=== PATIENT | female | born 2000 | race Caucasian/White ===

== ENCOUNTER 2022-05-08 14:33 | Inpatient (IN) | payer OTHER ==
[2022-05-08 15:32] VITALS: BMI 38.0
[2022-05-08] MEDS: hydrALAZINE 20 MG/ML VIAL ONE ×2 (15:34→16:21)
[2022-05-08] MEDS ORDERED: Magnesium Sulfate 20 gm/500 ml 20 GM/500 ML BAG ONE (16:14)
[2022-05-08] MEDS ORDERED: Lorazepam 2 MG/ML VIAL SLOW IVP PRN ×2 (17:02→17:49)
[2022-05-08] MEDS ORDERED: Calcium Gluc 4.6 MEQ/10 ML (100 MG/ML) SLOW IVP PRN ×2 (17:02→17:49)
[2022-05-08] MEDS ORDERED: Ondansetron PF 4 MG/2 ML Vial IVP PRN (17:02)
[2022-05-08] MEDS ORDERED: Labetalol HCl 100 MG/20 ML VIAL SLOW IVP PRN ×2 (17:02)
[2022-05-08] MEDS ORDERED: Butorphanol Tartrate 1 MG/ML VIAL SLOW IVP PRN (17:02)
[2022-05-08] MEDS ORDERED: hydrALAZINE 20 MG/ML VIAL SLOW IVP PRN ×3 (17:02)
[2022-05-08] MEDS ORDERED: Promethazine HCl 25 MG/ML VIAL IM PRN (17:02)
[2022-05-08] MEDS ORDERED: Labetalol HCl 100 MG/20 ML VIAL ONE (17:19)
[2022-05-08] MEDS ORDERED: NIFEdipine 10 MG CAP PO PRN ×2 (17:49)
[2022-05-08] MEDS ORDERED: Magnesium Sulfate 1 GM/2 ML VIAL IM SCH (18:00)
[2022-05-08] MEDS: Magnesium Sulfate 20 gm/500 ml 20 GM/500 ML BAG IVPB SCH (18:00)
[2022-05-08] MEDS ORDERED: MAGNESIUM SULFATE IM SCH ×2 (18:30→18:35)
[2022-05-08] MEDS ORDERED: LIDOCAINE 2% IM SCH ×2 (18:30→18:35)
[2022-05-08 19:06] LABS: Hemoglobin 13.7 g/dL (12.0-15.5); Mean Corpuscular HGB CONC 34.4 g/dL (32.0-36.0); Mean Corpuscular Hemoglobin 28.5 pg (27.0-33.0); Mean Corpuscular Volume 82.7 fl (81.6-98.3); Mean Platelet Volume 11.5 fl (7.4-10.4); Platelet Count 230 10x3/uL (150-450); RBC Distribution Width 14.1 % (11.5-14.5); Red Blood Cell (RBC) Count 4.81 10x6/uL (3.90-5.03); White Blood Cell (WBC) Count 23.1 10x3/uL (3.5-10.5)
[2022-05-08 19:21] LABS: ALT (SGPT) 43 U/L (8-55); AST (SGOT) 47 U/L (5-34); Albumin 3.4 g/dL (3.5-5.0); Alkaline Phosphatase 98 U/L (40-110); Anion Gap 15 mmol/L (10-20); BUN (Urea Nitrogen) 13 mg/dL (7.0-18.7); Bilirubin, Total 0.2 mg/dL (0.2-1.2); Calc. Creatinine Clearance 221 mL/min (70-130); Calcium 9.4 mg/dL (7.8-10.44); Carbon Dioxide 18 mmol/L (22-29); Chloride 107 mmol/L (98-107); Estimated GFR 126; Globulin 3.9 g/dL (2.4-3.5); Glucose 71 mg/dL (70-105); Protein, Total 7.3 g/dL (6.0-8.3); Sodium 136 mmol/L (136-145)
[2022-05-08 19:39] LABS: HBSAg Index 0.14 S/CO (0-0.99); Hep B Surf Ag Non-Reactive S/CO (NonReactive); Lymphocytes 14 % (21-51); Monocytes 5 % (0-10); Neutrophil 81 % (42-75)
[2022-05-08 19:40] LABS: MDiff Complete? YES; Platelet Morphology Comment Appears Adequate; RBC Morphology Normal; Syphilis Antibody Nonreactive (Nonreactive); Syphilis Antibody Index 0.06 S/CO (<1.00 Non-Reactive)
[2022-05-08 20:09] LABS: Amphetamine Not Detected (NotDetected); Barbiturates Screen Not Detected (NotDetected); Benzodiazepine Screen Not Detected (NotDetected); Cocaine Metabolite Screen Not Detected (NotDetected); Methadone Not Detected (NotDetected); Methamphetamine Not Detected (NotDetected); Opiate Screen Not Detected (NotDetected); Oxycodone Screen Not Detected (NotDetected); Phencyclidine (PCP) Not Detected (NotDetected); THC/Cannabinoid Screen Not Detected (NotDetected); Tricyclic Screen Not Detected (NotDetected)
[2022-05-08] MEDS: NIFEdipine XL 30 MG TAB PO SCH (21:15)
[2022-05-08] MEDS ORDERED: Fioricet 325/50/40 mg Tablet PO SCH (21:45)
[2022-05-09] MEDS: Magnesium Sulfate 20 gm/500 ml 20 GM/500 ML BAG IVPB SCH ×2 (00:53→12:11)
[2022-05-09 01:31] LABS: SARS-CoV-2 NAA Rapid Test Not Detected (NotDetected)
[2022-05-09] MEDS ORDERED: Fioricet 325/50/40 mg Tablet PO PRN (05:23)
[2022-05-09] MEDS ORDERED: Fioricet 325/50/40 mg Tablet PO SCH (05:45)
[2022-05-09 07:27] LABS: #Eosinphils 0.1 10x3/uL (0.0-0.5); #Monocytes 0.7 10x3/uL (0.0-1.1); #Neutrophils 11.8 10x3/uL (1.5-8.4); %Basophils 0.1 % (0.0-2.0); %Eosinophils 0.4 % (0.0-6.0); %Monocytes 4.4 % (0.0-10.0); %Neutrophils 76.6 % (40.0-75.0); Hemoglobin 12.9 g/dL (12.0-15.5); Mean Corpuscular HGB CONC 33.8 g/dL (32.0-36.0); Mean Corpuscular Hemoglobin 27.9 pg (27.0-33.0); Mean Corpuscular Volume 82.7 fl (81.6-98.3); Mean Platelet Volume 10.8 fl (7.4-10.4); Platelet Count 185 10x3/uL (150-450); RBC Distribution Width 14.2 % (11.5-14.5); Red Blood Cell (RBC) Count 4.62 10x6/uL (3.90-5.03); White Blood Cell (WBC) Count 15.4 10x3/uL (3.5-10.5)
[2022-05-09 07:42] LABS: ALT (SGPT) 41 U/L (8-55); AST (SGOT) 38 U/L (5-34); Albumin 3.1 g/dL (3.5-5.0); Alkaline Phosphatase 93 U/L (40-110); Anion Gap 13 mmol/L (10-20); BUN (Urea Nitrogen) 11 mg/dL (7.0-18.7); Bilirubin, Total 0.3 mg/dL (0.2-1.2); Calc. Creatinine Clearance 235 mL/min (70-130); Calcium 8.3 mg/dL (7.8-10.44); Carbon Dioxide 21 mmol/L (22-29); Chloride 105 mmol/L (98-107); Estimated GFR 128; Globulin 3.5 g/dL (2.4-3.5); Glucose 84 mg/dL (70-105); Potassium 4.1 mmol/L (3.5-5.1); Protein, Total 6.6 g/dL (6.0-8.3); Sodium 135 mmol/L (136-145)
[2022-05-09] MEDS: NIFEdipine XL 30 MG TAB PO SCH ×2 (08:23→21:14)
[2022-05-09] MEDS ORDERED: CEFAZOLIN 2 GM VIAL ONE (10:23)
[2022-05-09] MEDS ORDERED: Famotidine/PF 20 mg/2ml Vial ONE (10:23)
[2022-05-09] MEDS ORDERED: diphenhydrAMINE 50 MG/ML VIAL IVP PRN (10:42)
[2022-05-09] MEDS ORDERED: Moisturizing Cream (Eucerin) 113 GM JAR TOP PRN (10:42)
[2022-05-09] MEDS ORDERED: Fentanyl 100 MCG/2 ML VIAL SLOW IVP PRN (10:42)
[2022-05-09] MEDS ORDERED: Ondansetron PF 4 MG/2 ML Vial IVP PRN (10:42)
[2022-05-09] MEDS ORDERED: Meperidine HCl/PF 25 MG/ML VIAL SLOW IVP PRN (10:42)
[2022-05-09] MEDS ORDERED: Naloxone HCl 0.4 mg/ml Vial IVP PRN ×2 (10:42)
[2022-05-09] MEDS ORDERED: Naloxone HCl 0.4 mg/ml Vial IV PRN (10:42)
[2022-05-09] MEDS ORDERED: Promethazine HCl 25 MG/ML VIAL IM PRN (10:42)
[2022-05-09] MEDS ORDERED: Promethazine HCl 25 MG SUPP PR PRN (10:42)
[2022-05-09] MEDS ORDERED: Ondansetron HCl/PF 4 MG/2 ML Vial IVP PRN (10:42)
[2022-05-09] MEDS ORDERED: Ketorolac Tromethamine 30 MG/ML VIAL IVP PRN (10:42)
[2022-05-09] MEDS ORDERED: Famotidine/PF 20 mg/2ml Vial SLOW IVP PRN (10:43)
[2022-05-09] MEDS ORDERED: Bicitra 30 ML UDCUP PO PRN (10:43)
[2022-05-09] MEDS ORDERED: Morphine PF 10 MG/10 ML VIAL ONE (10:45)
[2022-05-09] MEDS ORDERED: Ketorolac Tromethamine 30 MG/ML VIAL IVP SCH (10:45)
[2022-05-09] MEDS ORDERED: CEFAZOLIN 2 GM in Sodium Chloride 0.9% 100 ML IVPB SCH (10:45)
[2022-05-09] MEDS ORDERED: Communication Order-Pharmacy FS SCH (10:45)
[2022-05-09] MEDS ORDERED: Ketorolac Tromethamine 30 MG/ML VIAL ONE (10:46)
[2022-05-09] MEDS ORDERED: Dexamethasone 4 mg/ml Vial ONE (10:46)
[2022-05-09] MEDS ORDERED: Ondansetron PF 4 MG/2 ML Vial ONE (10:46)
[2022-05-09] MEDS ORDERED: Oxytocin 10 UNITS/ML VIAL ONE (10:46)
[2022-05-09] MEDS ORDERED: Carboprost 250 MCG/ML AMP ONE (11:32)
[2022-05-09] MEDS ORDERED: Tranexamic Acid 1,000 MG/10 ML VIAL ONE (11:33)
[2022-05-09] MEDS ORDERED: Misoprostol 200 MCG TAB ONE (11:33)
[2022-05-09] MEDS ORDERED: PHENYLEPHRINE-NS 100 MCG/ML 10 ML SYRINGE ONE (11:45)
[2022-05-09] MEDS ORDERED: Diphenoxylate HCl/Atropine Tablet PO PRN (11:51)
[2022-05-09] MEDS ORDERED: Calcium Gluc 4.6 MEQ/10 ML (100 MG/ML) SLOW IVP PRN (16:39)
[2022-05-09] MEDS ORDERED: Boostrix 0.5 ML (Tdap) VIAL (>/=7 yrs of age) IM ONE (16:39)
[2022-05-09] MEDS ORDERED: Labetalol HCl 100 MG/20 ML VIAL SLOW IVP PRN ×3 (16:39)
[2022-05-09] MEDS ORDERED: diphenhydrAMINE 25 MG CAP PO PRN (16:39)
[2022-05-09] MEDS ORDERED: Simethicone Chewable 80 MG TAB PO PRN (16:39)
[2022-05-09] MEDS ORDERED: Bisacodyl 10 MG SUPP PR PRN (16:39)
[2022-05-09] MEDS ORDERED: Lanolin Ointment 7 GM TUBE TOP PRN (16:39)
[2022-05-09] MEDS ORDERED: hydrALAZINE 20 MG/ML VIAL SLOW IVP PRN (16:39)
[2022-05-09] MEDS: Ferrous Sulfate 325 MG TAB PO SCH (22:39)
[2022-05-09] MEDS: Docusate 100 MG CAP PO SCH (22:39)
[2022-05-09] MEDS ORDERED: Lorazepam 2 MG/ML VIAL SLOW IVP PRN (22:45)
[2022-05-09] MEDS ORDERED: Zolpidem Tartrate 5 MG TAB PO PRN (22:45)
[2022-05-09] MEDS ORDERED: HYDROcodone/Acetaminophen 5/325 mg Tablet PO PRN (22:45)
[2022-05-10 05:27] LABS: Mean Platelet Volume 11.4 fl (7.4-10.4); Platelet Count 166 10x3/uL (150-450)
[2022-05-10 05:28] LABS: Hemoglobin 10.9 g/dL (12.0-15.5); Mean Corpuscular HGB CONC 35.2 g/dL (32.0-36.0); Mean Corpuscular Hemoglobin 28.4 pg (27.0-33.0); Mean Corpuscular Volume 80.7 fl (81.6-98.3); RBC Distribution Width 14.2 % (11.5-14.5); Red Blood Cell (RBC) Count 3.84 10x6/uL (3.90-5.03); White Blood Cell (WBC) Count 16.9 10x3/uL (3.5-10.5)
[2022-05-10] MEDS ORDERED: NIFEdipine XL 30 MG TAB PO SCH (08:30)
[2022-05-10] MEDS: Ferrous Sulfate 325 MG TAB PO SCH ×2 (08:52→23:42)
[2022-05-10] MEDS: Prenatal Vitamin 1 TAB PO SCH (09:04)
[2022-05-10] MEDS: Docusate 100 MG CAP PO SCH ×2 (09:05→22:46)
[2022-05-10] MEDS: HYDROcodone/Acetaminophen 5/325 mg Tablet PO PRN ×4 (09:05→22:45)
[2022-05-10] MEDS: NIFEdipine XL 30 MG TAB PO SCH ×3 (09:06→23:43)
[2022-05-10] MEDS: Lactated Ringer's 1,000 ML IV SCH ×3 (09:27→20:14)
[2022-05-10] MEDS: Ibuprofen 800 MG TAB PO SCH ×2 (13:46→22:45)
[2022-05-11] MEDS: Ibuprofen 800 MG TAB PO SCH ×3 (05:23→21:09)
[2022-05-11] MEDS: Lactated Ringer's 1,000 ML IV SCH ×4 (06:40→19:44)
[2022-05-11] MEDS: Ferrous Sulfate 325 MG TAB PO SCH ×2 (07:46→13:59)
[2022-05-11] MEDS: Docusate 100 MG CAP PO SCH ×2 (08:14→21:09)
[2022-05-11] MEDS: HYDROcodone/Acetaminophen 5/325 mg Tablet PO PRN ×2 (08:14→13:09)
[2022-05-11] MEDS: NIFEdipine XL 30 MG TAB PO SCH ×2 (08:14→21:09)
[2022-05-11] MEDS: Prenatal Vitamin 1 TAB PO SCH (08:14)
[2022-05-12] MEDS: HYDROcodone/Acetaminophen 5/325 mg Tablet PO PRN (00:02)
[2022-05-12] MEDS: Ibuprofen 800 MG TAB PO SCH (05:08)
[2022-05-12] MEDS: Ferrous Sulfate 325 MG TAB PO SCH ×2 (07:50→07:51)
[2022-05-12] MEDS: Lactated Ringer's 1,000 ML IV SCH (07:51)
[2022-05-12 08:01] VITALS: TEMP 98
[2022-05-12] MEDS: Prenatal Vitamin 1 TAB PO SCH (08:02)
[2022-05-12] MEDS: NIFEdipine XL 30 MG TAB PO SCH (08:02)
[2022-05-12] MEDS: Docusate 100 MG CAP PO SCH (08:02)
[2022-05-12 11:17] VITALS: BP 132/72
== END 2022-05-12 11:17 | disposition home or self-care (01) | DRG 788 ==
LOC: CSHLD/OP 14:33 → UNDOADMIN 20:08 → CSHLD 20:08 → CSHANTE 05-10 08:30
PROVIDERS: ADMIT Obstetrics & Gynecology; ATTEND Obstetrics & Gynecology
PROC: 10D00Z1 Extraction of Products of Conception, Low, Open Approach (ICD-10-PCS; principal; 2022-05-09)
DX: O14.14 Severe pre-eclampsia complicating childbirth (principal); Z3A.29 29 weeks gestation of pregnancy; Z37.0 Single live birth; Z20.822 Contact with and (suspected) exposure to COVID-19; O36.5930 Maternal care for other known or suspected poor fetal growth, third trimester, not applicable or unspecified; O32.1XX0 Maternal care for breech presentation, not applicable or unspecified; E03.9 Hypothyroidism, unspecified; O99.284 Endocrine, nutritional and metabolic diseases complicating childbirth; Z79.82 Long term (current) use of aspirin; Z79.899 Other long term (current) drug therapy; O76 Abnormality in fetal heart rate and rhythm complicating labor and delivery; D50.0 Iron deficiency anemia secondary to blood loss (chronic); O90.81 Anemia of the puerperium
CPT/HCPCS: 36415; 51702; 76815; 80053; 80306; 82570; 84156; 84550; 85025; 85027; 86780; 86850; 86900; 86901; 87340; 88307; 99285; J0360; J0595; J1100; J1885; J2001; J2274; J2405; J2590; J3475; J3490; S0028; U0002